=== PATIENT | female | born 1955 | race Caucasian/White ===

== ENCOUNTER 2017-06-07 18:39 | Emergency (ER) | payer BC ==
[~2017-06-07] VITALS: Ht 162.6 cm; Wt 69.5 kg
[~2017-06-07 18:39] MED LIST: LANS30CA PO
[2017-06-07 18:45] VITALS: Ht 162.6 cm; Wt 69.5 kg
--- NOTE | 2017-06-07 19:43 | RADRPT ---
PROCEDURE: XR Chest. CLINICAL INDICATION: Chest pain. TECHNIQUE: Single frontal view of the chest. COMPARISON: 06/22/2016 FINDINGS: Heart size is at upper limits of normal. Left lung granuloma again seen. The lungs are otherwise gumaro ar. No signs of pleural fluid or pneumothorax are seen. The osseous structures and soft tissues are unremarkable. IMPRESSION: No evidence for active cardiopulmonary disease. RPTAT: [facility] Physician Mohan Date Time Electronically viewed and signed by Janina Peterson Physician on 06/07/2017 19:42 RS/
[2017-06-07 19:44] LABS: BASOPHILS % 0.4 % (0.0-2.0); EOSINOPHILS # 0.2 10^3/ul (0.0-0.5); EOSINOPHILS % 1.7 % (0.0-7.0); HEMOGLOBIN 13.7 g/dl (12.0-16.0); LYMPHOCYTES # 3.1 10^3/ul (0.8-2.9); LYMPHOCYTES % 30.1 % (15.0-51.0); MEAN CORPUSCULAR HEMOGLOBIN 28.5 pg (29.0-33.0); MEAN CORPUSCULAR HGB CONC 33.4 g/dl (32.0-37.0); MEAN CORPUSCULAR VOLUME 85.2 fl (82.0-101.0); MEAN PLATELET VOLUME 9.8 fl (7.4-10.4); MONOCYTE # 0.9 10^3/ul (0.3-0.9); NEUTROPHIL # 6.1 10^3/ul (1.6-7.5); NEUTROPHILS % 58.5 % (39.0-77.0); PLATELET COUNT 210 10^3/UL (140-415); RED BLOOD COUNT 4.81 10^6/ul (4.20-5.40); RED CELL DISTRIBUTION WIDTH 12.3 % (11.5-14.5); WHITE BLOOD COUNT 10.4 10^3/ul (4.8-10.8)
[2017-06-07 20:11] LABS: ANION GAP 16 (8-16); BLOOD UREA NITROGEN 17 mg/dl (7-20); CALCIUM 9.3 mg/dl (8.4-10.2); CARBON DIOXIDE 27 mmol/L (21-31); CHLORIDE 103 mmol/L (97-110); CREATININE 0.71 mg/dl (0.44-1.00); GLUCOSE 113 mg/dl (70-220); POTASSIUM 4.1 mmol/L (3.5-5.1); SODIUM 142 mmol/L (135-144)
[2017-06-07 20:20] LABS: B-TYPE NATRIURETIC PEPTIDE 18 PG/ML (0-125)
[2017-06-07 20:23] LABS: TROPONIN-I < 0.012 ng/ml (0.00-0.12)
[2017-06-07] MEDS ORDERED: morphine 4 MG/ML VIAL IV STA (20:32)
[2017-06-07] MEDS ORDERED: LEVO500T72 PO (20:36)
[2017-06-07] MEDS ORDERED: HYDR-906 PO (20:36)
[2017-06-07] MEDS ORDERED: NAPR-685 PO (20:36)
[2017-06-07] MEDS ORDERED: ASPIRIN 81 MG TAB PO ONE (21:00)
[2017-06-07] MEDS ORDERED: LIDOCAINE/MYLANTA 40 ML BTL PO ONE (21:00)
[2017-06-07] MEDS ORDERED: ALBU18HF INHALATION (21:23)
--- NOTE | 2017-06-07 21:29 | ERD ---
ER Documentation Chief Complaint Chief Complaint chest pain today, cough x 3 days HPI This 62-year-old female presents for chest pain and cough for 3 days. The chest pain is made worse with the cough. She has some shortness of breath. States that she had bronchitis 6 years ago and this feels similar. Has had chills but no fevers. Denies any abdominal pain, nausea or vomiting. ROS All systems reviewed and are negative except as per history of present illness. Medications Home Meds Active Scripts Albuterol Sulfate* (Ventolin HFA*) 18 Gm Hfa.aer.ad, 2 PUFF INHALATION Q4H, #1 INHALER Prov:ANTONIO GOLDBERG DO 06/07/17 Levofloxacin* (Levaquin*) 500 Mg Tablet, 500 MG PO DAILY for 7 Days, TAB Prov:ANTONIO GOLDBERG DO 06/07/17 Naproxen* (Naproxen*) 375 Mg Tablet, 375 MG PO BID Y for PAIN, #14 TAB Prov:ANTONIO GOLDBERG DO 06/07/17 Hydrocodone/Acetaminophen (Tie Siding 5-325 Tablet) 1 Each Tablet, 1 EACH PO Q6, #14 TAB Prov:ANTONIO GOLDBERG DO 06/07/17 Reported Medications Lansoprazole* (Lansoprazole*) 30 Mg Capsule.dr, 30 MG PO DAILY, CAP 12/04/14 Allergies Allergies: Coded Allergies: No Known Allergies (Verified Allergy, Mild, 09/19/14) PMhx/Soc History of Surgery: Yes (RIGHT HAND, , AND APPY) Anesthesia Reaction: No Hx Neurological Disorder: No Hx Respiratory Disorders: No Hx Cardiac Disorders: No Hx Psychiatric Problems: No Hx Miscellaneous Medical Probl: No Hx Alcohol Use: No Hx Substance Use: No Hx Tobacco Use: No Smoking Status: Never smoker Physical Exam Vitals Vital Signs Date Time Temp Pulse Resp B/P Pulse Ox O2 Delivery O2 Flow Rate FiO2 06/07/17 19:43 98.0 83 20 148/94 100 Nasal Cannula 2.0 06/07/17 18:58 Nasal Cannula 2 06/07/17 18:45 98.8 88 20 144/88 98 Physical Exam Const: [] Mild distress, raspy voice Head: Atraumatic Eyes: Normal Conjunctiva ENT: Normal External Ears, Nose and Mouth. Oropharynx within normal limits. Mucous membranes moist Neck: Full range of motion..~ No meningismus. Resp: Clear to auscultation bilaterally coughs on exam Cardio: Regular rate and rhythm, no murmurs Skin: No petechiae or rashes Back: No midline or flank tenderness Ext: No cyanosis, or edema Neur: Awake and alert oriented 3, no focal deficits Psych: Normal Mood and Affect Result Diagram: 06/07/17192906/07/171929 Results 24 hrs Laboratory Tests Test 06/07/17 19:30 White Blood Count 10.410^3/ul Red Blood Count 4.8110^6/ul Hemoglobin 13.7g/dl Hematocrit 41.0% Mean Corpuscular Volume 85.2fl Mean Corpuscular Hemoglobin 28.5pg Mean Corpuscular Hemoglobin Concent 33.4g/dl Red Cell Distribution Width 12.3% Platelet Count 01652^3/UL Mean Platelet Volume 9.8fl Neutrophils % 58.5% Lymphocytes % 30.1% Monocytes % 9.0% Eosinophils % 1.7% Basophils % 0.4% Nucleated Red Blood Cells % 0.0/100WBC Neutrophils # 6.110^3/ul Lymphocytes # 3.110^3/ul Monocytes # 0.910^3/ul Eosinophils # 0.210^3/ul Basophils # 0.010^3/ul Nucleated Red Blood Cells # 0.010^3/ul Sodium Level 142mmol/L Potassium Level 4.1mmol/L Chloride Level 103mmol/L Carbon Dioxide Level 27mmol/L Anion Gap 16 Blood Urea Nitrogen 17mg/dl Creatinine 0.71mg/dl Glucose Level 113mg/dl Calcium Level 9.3mg/dl Troponin I < 0.012ng/ml B-Type Natriuretic Peptide 18PG/ML Current Medications Medications (Trade) Dose Ordered Sig/Dennys Route PRN Reason Start Time Stop Time Status Last Admin Dose Admin Miscellaneous Medication (Gi Cocktail (2)) 40 ml ONCE ONCE PO 06/07/17 21:00 06/07/17 21:01 DC 06/07/17 20:40 Aspirin (Aspirin) 324 mg ONCE ONCE PO 06/07/17 21:00 06/07/17 21:01 DC 06/07/17 20:41 Morphine Sulfate (morphine) 4 mg ONCE STAT IV 06/07/17 20:32 06/07/17 20:33 DC 06/07/17 20:41 Procedures/MDM Likely acute bronchitis viral versus bacterial as well as chest pain likely secondary to the infection. I have very low suspicion for pulmonary embolism or acute coronary syndrome as patient has a negative troponin and nonischemic EKG. patient was given aspirin, morphine and a GI cocktail. Her condition was much improved after the morphine she no longer had a cough and felt more comfortable. Still felt mildly ill. Laboratories are normal and her vital signs are stable. I believe she is appropriate for outpatient treatment of her bronchitis. We will discharge her with Levaquin for a few days as well as albuterol inhaler if she develops shortness of breath. Also giving her naproxen and Tie Siding for pain. EKG interpretation: Normal sinus rhythm rate of 78, normal axis, no ST or T- wave changes concerning for acute ischemia, normal intervals. radiation monitor interpretation: Normal sinus rhythm without arrhythmia Chest x-ray interpretation: I see no acute process, see no infiltrate, no palmar edema, no pneumothorax, no fractures. Departure Diagnosis: Primary Impression: Acute bronchitis Additional Impression: Chest pain Condition: Stable Patient Instructions: Bronchitis, Antiobiotic Treatment (Adult), Chest Pain, Uncertain Cause Additional Instructions: Llame al doctor MAANA y eric luci ARMANI PARA DENTRO DE 2-3 GOLDBERG.Dgale a la secretaria que nosotros le instruimos hacer esta armani.Avise o llame si pink condicin se empeora antes de la armani. Regresa aqui si peor o no mejor. ANTONIO GOLDBERG DO Jun 07, 2017 21:29
[2017-06-07 21:37] VITALS: BP 136/78; PULSE 89; RESP 18; TEMP 97.9
== END 2017-06-07 21:39 | disposition home or self-care (01) ==
LOC: E/R 18:39
DX: J20.9 Acute bronchitis, unspecified (principal); R40.2252 Coma scale, best verbal response, oriented, at arrival to emergency department; R40.2142 Coma scale, eyes open, spontaneous, at arrival to emergency department; R40.2362 Coma scale, best motor response, obeys commands, at arrival to emergency department
CPT/HCPCS: 36415; 71010; 80048; 83880; 84484; 85025; 87400; 93005; 96374; 99285; J2270

== ENCOUNTER 2017-06-10 12:57 | Emergency (ER) | payer BC ==
[~2017-06-10] VITALS: Ht 157.5 cm; Wt 70.8 kg
[~2017-06-10 12:57] MED LIST changes: +ALBU18HF INHALATION; +HYDR-906 PO; +LEVO500T72 PO; +NAPR-685 PO
[2017-06-10 13:00] VITALS: Ht 157.5 cm; Wt 70.8 kg
[2017-06-10] MEDS ORDERED: HYDR25TA6 PO (13:39)
--- NOTE | 2017-06-10 13:44 | ERD ---
ER Documentation Chief Complaint Chief Complaint cough x 5 days HPI 62-year-old female presents for follow-up of cough. She was seen here 3 days ago and took Levaquin and pro-air. The cough is improving. She is here upon the recommendation of employee health to take a few more days off until she returns to work. Additionally she is requesting medication for hypertension as her blood pressures been elevated in the past as well as that her primary doctor in the past but she has never been initiated on any medication patient has any shortness of breath or chest pain. Says he active fevers again cough is improving. ROS All systems reviewed and are negative except as per history of present illness. Medications Home Meds Active Scripts Hydrochlorothiazide* (Hydrochlorothiazide*) 25 Mg Tab, 25 MG PO DAILY, #30 TAB Prov:CALLI CALVILLO MD 06/10/17 Albuterol Sulfate* (Ventolin HFA*) 18 Gm Hfa.aer.ad, 2 PUFF INHALATION Q4H, #1 INHALER Prov:ANTONIO GOLDBERG DO 06/07/17 Levofloxacin* (Levaquin*) 500 Mg Tablet, 500 MG PO DAILY for 7 Days, TAB Prov:ANTONIO GOLDBERG DO 06/07/17 Naproxen* (Naproxen*) 375 Mg Tablet, 375 MG PO BID Y for PAIN, #14 TAB Prov:ANTONIO GOLDBERG DO 06/07/17 Hydrocodone/Acetaminophen ([place] 5-325 Tablet) 1 Each Tablet, 1 EACH PO Q6, #14 TAB Prov:ANTONIO GOLDBERG DO 06/07/17 Reported Medications Lansoprazole* (Lansoprazole*) 30 Mg Capsule.dr, 30 MG PO DAILY, CAP 12/04/14 Allergies Allergies: Coded Allergies: No Known Allergies (Verified Allergy, Mild, 09/19/14) PMhx/Soc History of Surgery: Yes (RIGHT HAND, , AND APPY) Anesthesia Reaction: No Hx Neurological Disorder: No Hx Respiratory Disorders: No Hx Cardiac Disorders: Yes (HTN) Hx Psychiatric Problems: No Hx Miscellaneous Medical Probl: No Hx Alcohol Use: No Hx Substance Use: No Hx Tobacco Use: No Smoking Status: Never smoker Physical Exam Vitals Vital Signs Date Time Temp Pulse Resp B/P Pulse Ox O2 Delivery O2 Flow Rate FiO2 06/10/17 13:00 98.2 76 18 183/93 95 Physical Exam Const: [] Alert, [id number]. Head: Atraumatic Eyes: Normal Conjunctiva ENT: Normal External Ears, Nose and Mouth. TMs and oropharynx normal. Neck: Full range of motion..~ No meningismus. Resp: Clear to auscultation bilaterally Cardio: Regular rate and rhythm, no murmurs Abd: Soft, non tender, non distended. Normal bowel sounds Skin: No petechiae or rashes Back: No midline or flank tenderness Ext: No cyanosis, or edema Neur: Awake and alert Psych: Normal Mood and Affect Procedures/MDM Patient presents with signs and symptoms of improving URI symptoms with essentially normal exam. Her blood pressure is elevated and she will be initiated on hydrochlorothiazide and primary care follow-up. There is no signs or symptoms to suggest endorgan damage, acute coronary syndrome, pulmonary embolism, additional complications due to her recent URI elevated blood pressure. The patient was stable with no new complaints during the ER course. Clinically, there is no current evidence to suggest meningitis, sepsis, acute abdomen, pneumonia, acute coronary syndrome, pulmonary embolism, or any other emergent condition appearing to require further evaluation or hospitalization. The patient should certainly return for any new or worsening symptoms per the aftercare instructions. They should otherwise follow-up with her primary care doctor for reevaluation this week. Departure Diagnosis: Primary Impression: URI, acute Additional Impression: Hypertension Hypertension type: unspecified Qualified Code: I10 - Hypertension, unspecified type Condition: Stable Patient Instructions: Hypertension, New (Begin Treatment) Additional Instructions: Current treatment. Recheck for new or worsening symptoms or primary care doctor. Follow-up with primary doctor for further evaluation of blood pressure. CALLI CALVILLO MD Jun 10, 2017 13:44
== END 2017-06-10 13:54 | disposition home or self-care (01) ==
LOC: FTE 12:57
DX: J06.9 Acute upper respiratory infection, unspecified (principal); I10 Essential (primary) hypertension
CPT/HCPCS: 99283

== ENCOUNTER 2017-09-29 18:55 | Emergency (ER) | END 2017-09-29 21:42 | disposition home or self-care (01) ==

== ENCOUNTER 2017-12-24 12:35 | Emergency (ER) | END 2017-12-24 14:53 | disposition home or self-care (01) ==

== ENCOUNTER 2019-03-07 12:49 | Emergency (ER) | payer BC ==
[~2019-03-07] VITALS: Wt 78.0 kg
[~2019-03-07 12:49] MED LIST changes: +ACET325T33 PO; +AMOX500C2 PO; +AZIT250T13 PO; +BENZ-6 PO; +CYCL10TA7 PO; +HYDR-4011 PO; -HYDR-906 PO; +HYDR25TA6 PO; +IBUP-1561 PO; +LEVO500T48 PO; -LEVO500T72 PO; +MED4DP PO; +NAPR-985 PO; +NITR-58 PO; +TRAM50TA2 PO
[2019-03-07 12:53] VITALS: BP 143/83; PULSE 99; RESP 18
[2019-03-07] MEDS ORDERED: KETOROLAC 15 MG INJ IM STA (14:40)
== END 2019-03-07 15:51 | disposition home or self-care (01) ==
LOC: FTE 12:49
DX: J03.90 Acute tonsillitis, unspecified (principal); I10 Essential (primary) hypertension
CPT/HCPCS: 96372; 99284; J1885

== ENCOUNTER 2019-05-20 23:17 | Emergency (ER) | payer BC ==
[~2019-05-20] VITALS: Ht 160 cm; Wt 72.0 kg
[~2019-05-20 23:17] MED LIST changes: +CALC1TAB94 PO; +IBUP800T48 PO; +MULTI PO
[2019-05-20 23:19] VITALS: Ht 160 cm; Wt 72.0 kg
[2019-05-21] MEDS ORDERED: IBUPROFEN 800 MG TAB PO ONE (03:00)
[2019-05-21 03:19] VITALS: BP 148/70; PULSE 74; RESP 18
== END 2019-05-21 03:19 | disposition home or self-care (01) ==
LOC: E/R 23:17 → EEVIPCON 23:17 → E/R 05-21 03:19
DX: M94.0 Chondrocostal junction syndrome [Tietze] (principal); I10 Essential (primary) hypertension
CPT/HCPCS: 71045; 80048; 84484; 85025; 93005